=== PATIENT | male | born 1960 | race Caucasian/White ===

== ENCOUNTER → 2021-06-02 | Outpatient (CLI) | payer OTHER | LOC: KOH-I 11:57 | DX: M40.209 Unspecified kyphosis, site unspecified (principal); R01.1 Cardiac murmur, unspecified | CPT/HCPCS: 72070 ==

== ENCOUNTER → 2021-06-18 | Outpatient (CLI) | payer OTHER | LOC: ECHO 11:00 | DX: R01.1 Cardiac murmur, unspecified (principal) | CPT/HCPCS: ECHO; 93306 ==

== ENCOUNTER → 2021-07-02 | Outpatient (CLI) | payer OTHER | LOC: KOH-I 12:18 | DX: R50.9 Fever, unspecified (principal) | CPT/HCPCS: 71046 ==